=== PATIENT | female | born 1980 | race Caucasian/White ===

== ENCOUNTER → 2018-01-12 | Outpatient (CLI) | payer BC | LOC: RAD 10:41 | DX: M79.642 Pain in left hand (principal) ==

== ENCOUNTER → 2018-11-18 | Outpatient (CLI) | payer BC | LOC: RAD 11:04 | DX: S69.91XA Unspecified injury of right wrist, hand and finger(s), initial encounter (principal) ==

== ENCOUNTER → 2019-11-06 | Outpatient (CLI) | payer BC | LOC: LAB 08:56 | DX: Z20.828 Contact with and (suspected) exposure to other viral communicable diseases (principal) ==

== ENCOUNTER 2020-03-18 22:40 | Emergency (ER) | payer BC ==
[~2020-03-18] VITALS: Ht 160 cm; Wt 94.8 kg
[2020-03-18] MEDS ORDERED: ZYRTEC10 M3 PO (22:47)
[2020-03-18] MEDS ORDERED: SINGULAIR PO (22:47)
[2020-03-18] MEDS ORDERED: DULOXETINE60 MG PO (22:47)
[2020-03-18] MEDS ORDERED: SUDAFED 12HR120 MG PO (22:48)
[2020-03-18 23:33] LABS: EOS # 0.1 (0.04-0.40); EOS % 1.3 % (1.0-5.0); HEMATOCRIT 39.4 % (37.0-47.0); HEMOGLOBIN 12.7 g/dL (12.5-16.0); LYMPH# 2.9 (1.50-4.00); MEAN CELL VOLUME 86 fl (78-100); MEAN CORPUSCULAR HEMOGLOBIN 28 pg (27-31); MEAN CORPUSCULAR HGB CONC 32 g/dL (33-37); MEAN PLATELET VOLUME 9.6 fl (7.4-10.4); MONO # 0.9 (0.20-0.80); NEU # 6.2 (1.40-6.50); PLATELET COUNT 289 K/mm3 (130-400); RED BLOOD COUNT 4.59 M/mm3 (4.10-5.30); RED CELL DISTRIBUTION WIDTH 13.5 % (11.5-14.5); WHITE BLOOD COUNT 10.2 K/mm3 (4.8-10.8)
[2020-03-18 23:43] LABS: ALBUMIN 4.2 g/dL (3.5-5.0)
[2020-03-18 23:44] LABS: POTASSIUM 3.9 mmol/L (3.5-5.1)
[2020-03-18 23:45] LABS: CALCIUM 9.4 mg/dL (8.3-10.5)
[2020-03-18 23:45] LABS: URINE APPEARANCE CLOUDY; URINE BILIRUBIN NEGATIVE (NEGATIVE); URINE COLOR YELLOW; URINE GLUCOSE NEGATIVE (NEGATIVE); URINE KETONE NEGATIVE (NEGATIVE); URINE NITRATE NEGATIVE (NEGATIVE); URINE PROTEIN(semi-quant) TRACE mg/dL (NEGATIVE); URINE UROBILINOGEN NORMAL (NORMAL)
[2020-03-18 23:46] LABS: TOTAL PROTEIN 7.8 g/dL (6.4-8.3)
[2020-03-18 23:46] LABS: URINE BLOOD 250 ery/uL (NEGATIVE); URINE LEUKOCYTE ESTERASE NEGATIVE (NEGATIVE)
[2020-03-18 23:48] LABS: TOTAL BILIRUBIN 0.2 mg/dL (0.2-1.2)
[2020-03-19 00:48] VITALS: BP 98/54
== END 2020-03-19 00:50 | disposition home or self-care (01) ==
LOC: ED 22:40
PROVIDERS: Physician Assistant
DX: R31.9 Hematuria, unspecified (principal); F32.9 Major depressive disorder, single episode, unspecified; Z88.5 Allergy status to narcotic agent; Z88.0 Allergy status to penicillin
CPT/HCPCS: J1885; J2405; J7030; Q9967

== ENCOUNTER → 2020-05-02 | Outpatient (CLI) | payer BC ==
[~2020-05-02] MED LIST: DULOXETINE60 MG PO; SINGULAIR PO; SUDAFED 12HR120 MG PO; ZYRTEC10 M3 PO
== END ==
LOC: LAB 10:58
DX: J02.9 Acute pharyngitis, unspecified (principal); Z20.828 Contact with and (suspected) exposure to other viral communicable diseases

== ENCOUNTER 2020-10-25 08:56 | Emergency (ER) | payer BC ==
[2020-10-25 09:04] VITALS: BP 120/99
[2020-10-25] MEDS ORDERED: ZOLOFT25 M1 PO (09:51)
== END 2020-10-25 09:55 | disposition home or self-care (01) ==
LOC: ED 08:56
DX: F41.9 Anxiety disorder, unspecified (principal); F32.9 Major depressive disorder, single episode, unspecified

== ENCOUNTER → 2021-03-12 | Outpatient (CLI) | payer BC ==
[~2021-03-12] MED LIST changes: +ZOLOFT25 M1 PO
== END ==
LOC: RAD 15:43
DX: S99.922A Unspecified injury of left foot, initial encounter (principal)

== ENCOUNTER → 2021-06-03 | Outpatient (CLI) | payer BC | LOC: RAD 06:56 | DX: M25.572 Pain in left ankle and joints of left foot (principal) ==

== ENCOUNTER → 2021-11-04 | Outpatient (CLI) | payer BC ==
[2021-11-04 08:04] LABS: BASO # 0.04 K/mm3 (0.02-0.10); EOS # 0.12 K/mm3 (0.04-0.40); EOS % 1.7 % (1.0-5.0); HEMATOCRIT 36.8 % (37.0-47.0); HEMOGLOBIN 12.1 g/dL (12.5-16.0); MEAN CELL VOLUME 88 fl (78-100); MEAN CORPUSCULAR HEMOGLOBIN 29 pg (27-31); MEAN CORPUSCULAR HGB CONC 33 g/dL (33-37); MEAN PLATELET VOLUME 9.7 fl (7.4-10.4); MONO # 0.49 K/mm3 (0.20-0.80); NEU # 4.31 K/mm3 (1.40-6.50); PLATELET COUNT 291 K/mm3 (130-400); RED BLOOD COUNT 4.17 M/mm3 (4.10-5.30); RED CELL DISTRIBUTION WIDTH 12.5 % (11.5-14.5); WHITE BLOOD COUNT 6.9 K/mm3 (4.8-10.8)
[2021-11-04 08:31] LABS: URINE APPEARANCE CLEAR; URINE BILIRUBIN NEGATIVE (NEGATIVE); URINE BLOOD NEGATIVE (NEGATIVE); URINE COLOR YELLOW; URINE GLUCOSE NEGATIVE (NEGATIVE); URINE KETONE NEGATIVE (NEGATIVE); URINE LEUKOCYTE ESTERASE NEGATIVE (NEGATIVE); URINE NITRATE NEGATIVE (NEGATIVE); URINE PROTEIN(semi-quant) NEGATIVE (NEGATIVE); URINE UROBILINOGEN NORMAL (NORMAL)
[2021-11-04 08:32] LABS: URINE WBC 0-1 /hpf (0-3)
[2021-11-04 08:39] LABS: POTASSIUM 3.9 mmol/L (3.5-5.1)
[2021-11-04 08:40] LABS: CALCIUM 9.4 mg/dL (8.3-10.5)
[2021-11-04 08:42] LABS: TOTAL PROTEIN 7.3 g/dL (6.4-8.3)
[2021-11-04 08:43] LABS: TOTAL BILIRUBIN 0.2 mg/dL (0.2-1.2)
== END ==
LOC: RAD 07:47 → LAB 07:47
PROVIDERS: Nurse Practitioner Family
DX: R10.9 Unspecified abdominal pain (principal); R11.0 Nausea; Z90.49 Acquired absence of other specified parts of digestive tract
CPT/HCPCS: Q9967

== ENCOUNTER → 2021-11-24 | Outpatient (CLI) | payer BC ==
[2021-11-24 21:57] LABS: FOLLICLE STIMULATING HORMONE 12.9 mIU/mL (()); LUTENIZING HORMONE 3.2 mIU/mL (()); PROGESTERONE 4.3 ng/mL (())
== END ==
LOC: LAB 12:24
PROVIDERS: Family Medicine
DX: K27.9 Peptic ulcer, site unspecified, unspecified as acute or chronic, without hemorrhage or perforation (principal); E03.9 Hypothyroidism, unspecified; J45.20 Mild intermittent asthma, uncomplicated; J30.9 Allergic rhinitis, unspecified; F32.9 Major depressive disorder, single episode, unspecified; F41.1 Generalized anxiety disorder; K58.1 Irritable bowel syndrome with constipation; E66.9 Obesity, unspecified; N91.1 Secondary amenorrhea; M79.7 Fibromyalgia

== ENCOUNTER → 2021-12-08 | Day surgery (SDC) | payer BC | END | disposition still patient (30) | LOC: MSO 08:17 | DX: R10.12 Left upper quadrant pain (principal); R11.0 Nausea; E03.9 Hypothyroidism, unspecified; N91.1 Secondary amenorrhea; Z86.16 Personal history of COVID-19; Z68.25 Body mass index [BMI] 25.0-25.9, adult; E66.9 Obesity, unspecified; K27.9 Peptic ulcer, site unspecified, unspecified as acute or chronic, without hemorrhage or perforation; Z79.890 Hormone replacement therapy; F41.1 Generalized anxiety disorder; K58.1 Irritable bowel syndrome with constipation; M79.7 Fibromyalgia; J45.20 Mild intermittent asthma, uncomplicated; J30.9 Allergic rhinitis, unspecified; K90.41 Non-celiac gluten sensitivity | CPT/HCPCS: 00731; J2704; J3010; J7120 ==

== ENCOUNTER → 2022-05-20 | Outpatient (CLI) | payer BC | LOC: MAMMO 08:22 | DX: Z12.31 Encounter for screening mammogram for malignant neoplasm of breast (principal) ==

== ENCOUNTER → 2022-06-18 | Outpatient (CLI) | payer BC ==
[2022-06-18 08:01] LABS: BASO # 0.02 K/mm3 (0.02-0.10); EOS # 0.14 K/mm3 (0.04-0.40); EOS % 2.1 % (1.0-5.0); HEMOGLOBIN 11.9 g/dL (12.5-16.0); LYMPH# 2.17 K/mm3 (1.50-4.00); MEAN CELL VOLUME 89 fl (78-100); MEAN CORPUSCULAR HEMOGLOBIN 29 pg (27-31); MEAN CORPUSCULAR HGB CONC 32 g/dL (33-37); MEAN PLATELET VOLUME 9.2 fl (7.4-10.4); MONO # 0.39 K/mm3 (0.20-0.80); NEU # 3.89 K/mm3 (1.40-6.50); PLATELET COUNT 299 K/mm3 (130-400); RED BLOOD COUNT 4.16 M/mm3 (4.10-5.30); RED CELL DISTRIBUTION WIDTH 12.7 % (11.5-14.5); WHITE BLOOD COUNT 6.6 K/mm3 (4.8-10.8)
[2022-06-18 08:12] LABS: ALBUMIN 3.8 g/dL (3.5-5.0)
[2022-06-18 08:15] LABS: TOTAL PROTEIN 6.9 g/dL (6.4-8.3)
[2022-06-18 08:16] LABS: TOTAL BILIRUBIN 0.3 mg/dL (0.2-1.2)
== END ==
LOC: LAB 07:44
PROVIDERS: Nurse Practitioner
DX: A08.4 Viral intestinal infection, unspecified (principal)

== ENCOUNTER → 2023-05-25 | Outpatient (CLI) | payer BC ==
[~2023-05-25] MED LIST changes: +CEFDINIR300 MG PO; +PROBIOTIC1 EAC1 PO; +ZOFRAN ODT4 MG PO
== END ==
LOC: MAMMO 11:00
DX: Z12.31 Encounter for screening mammogram for malignant neoplasm of breast (principal)

== ENCOUNTER 2023-05-26 07:00 | Emergency (ER) | payer BC ==
[~2023-05-26] VITALS: Ht 154.9 cm; Wt 96.0 kg
[~2023-05-26 07:00] MED LIST changes: -CEFDINIR300 MG PO; -PROBIOTIC1 EAC1 PO; -ZOFRAN ODT4 MG PO
[2023-05-26] MEDS ORDERED: PROBIOTIC1 EAC1 PO (07:13)
[2023-05-26] MEDS ORDERED: CEFDINIR300 MG PO (07:13)
[2023-05-26 07:35] LABS: URINE WBC 0 /hpf (0-3)
[2023-05-26 07:37] LABS: BASO # 0.02 K/mm3 (0.02-0.10); EOS # 0.08 K/mm3 (0.04-0.40); EOS % 0.6 % (1.0-5.0); HEMATOCRIT 39.1 % (37.0-47.0); HEMOGLOBIN 12.9 g/dL (12.5-16.0); LYMPH# 1.04 K/mm3 (1.50-4.00); MEAN CELL VOLUME 88 fl (78-100); MEAN CORPUSCULAR HEMOGLOBIN 29 pg (27-31); MEAN CORPUSCULAR HGB CONC 33 g/dL (33-37); MEAN PLATELET VOLUME 9.6 fl (7.4-10.4); MONO # 0.68 K/mm3 (0.20-0.80); NEU # 10.56 K/mm3 (1.40-6.50); PLATELET COUNT 279 K/mm3 (130-400); RED BLOOD COUNT 4.45 M/mm3 (4.10-5.30); RED CELL DISTRIBUTION WIDTH 12.1 % (11.5-14.5); WHITE BLOOD COUNT 12.4 K/mm3 (4.8-10.8)
[2023-05-26 07:46] LABS: ALBUMIN 4.3 g/dL (3.5-5.0)
[2023-05-26 07:47] LABS: CALCIUM 9.4 mg/dL (8.3-10.5)
[2023-05-26 07:47] LABS: URINE APPEARANCE CLEAR (CLEAR); URINE COLOR YELLOW (YELLOW); URINE GLUCOSE NEGATIVE (NEGATIVE); URINE PROTEIN(semi-quant) TRACE (NEGATIVE)
[2023-05-26 07:48] LABS: URINE BILIRUBIN 1+ (NEGATIVE); URINE BLOOD TRACE (NEGATIVE); URINE KETONE TRACE (NEGATIVE); URINE LEUKOCYTE ESTERASE NEGATIVE (NEGATIVE); URINE MUCUS PRESENT (NOT PRESENT); URINE NITRATE NEGATIVE (NEGATIVE)
[2023-05-26 07:49] LABS: TOTAL PROTEIN 7.7 g/dL (6.4-8.3)
[2023-05-26 07:50] LABS: TOTAL BILIRUBIN 0.33 mg/dL (0.2-1.2)
[2023-05-26] MEDS ORDERED: ZOFRAN ODT4 MG PO (09:18)
[2023-05-26 10:11] VITALS: BP 106/58
== END 2023-05-26 10:16 | disposition home or self-care (01) ==
LOC: ED 07:00
PROVIDERS: Nurse Practitioner
DX: K52.9 Noninfective gastroenteritis and colitis, unspecified (principal)
CPT/HCPCS: J1885; J2405; J7030; Q9967

== ENCOUNTER → 2023-09-22 | Outpatient (CLI) | payer BC ==
[~2023-09-22] MED LIST changes: +CEFDINIR300 MG PO; +PROBIOTIC1 EAC1 PO; +ZOFRAN ODT4 MG PO
[2023-11-11 10:09] LABS: CORTISOL, AM (0800) 8.9; LUTENIZING HORMONE 3.9
[2023-11-11 10:10] LABS: INSULIN 10.6; PROGESTERONE 7.7
[2023-11-11 10:56] LABS: BASO # 0.02 K/mm3 (0.02-0.10); EOS % 1.6 % (1.0-5.0); HEMATOCRIT 37.2 % (37.0-47.0); HEMOGLOBIN 12.3 g/dL (12.5-16.0); LYMPH# 1.61 K/mm3 (1.50-4.00); MEAN CELL VOLUME 88 fl (78-100); MEAN CORPUSCULAR HEMOGLOBIN 29 pg (27-31); MEAN CORPUSCULAR HGB CONC 33 g/dL (33-37); MEAN PLATELET VOLUME 9.8 fl (7.4-10.4); NEU # 3.86 K/mm3 (1.40-6.50); PLATELET COUNT 244 K/mm3 (130-400); RED BLOOD COUNT 4.23 M/mm3 (4.10-5.30); RED CELL DISTRIBUTION WIDTH 12.2 % (11.5-14.5); WHITE BLOOD COUNT 6.1 K/mm3 (4.8-10.8)
[2023-11-11 11:30] LABS: CALCIUM 9.3 mg/dL (8.3-10.5); TOTAL BILIRUBIN 0.2 mg/dL (0.2-1.2); TOTAL PROTEIN 7.2 g/dL (6.4-8.3)
== END ==
LOC: LAB 09:35
PROVIDERS: Nurse Practitioner
DX: Z00.00 Encounter for general adult medical examination without abnormal findings (principal); R63.5 Abnormal weight gain

== ENCOUNTER → 2024-04-07 | Outpatient (CLI) | payer BC | LOC: RAD 07:30 | DX: R05.3 Chronic cough (principal) ==

== ENCOUNTER → 2024-06-01 | Outpatient (CLI) | payer BC | LOC: MAMMO 15:22 | DX: Z12.31 Encounter for screening mammogram for malignant neoplasm of breast (principal) ==